=== PATIENT | male | born 1940 | race African-American/Black ===

== ENCOUNTER 2017-12-10 03:09 | Emergency (ER) | payer MEDICARE ==
[2017-12-10 03:39] VITALS: BMI 25.6
[2017-12-10] MEDS ORDERED: KETOROLAC TROMETHAMINE 60 MG/2 ML VIAL IM ONE (03:58)
--- NOTE | 2017-12-10 04:00 | PDOC ---
History of Present Illness - General Chief Complaint: Pain Stated Complaint: L LEG PAIN Time Seen by Provider: 12/10/17 03:33 History Source: Patient Exam Limitations: No Limitations - History of Present Illness Initial Comments: CHIEF COMPLAINT: 68 y/o afebrile male with PMH HTN, HLD, DM, arthritis c/o left hip pain. HISTORY OF PRESENT ILLNESS: The patient states the left hip has been hurting more than usual for the past 24 hours. He has not taken anything for pain. He does have bad arthritis in his left hip. He denies fall or trauma to left hip. He denies swelling, numbness/tingling to affected extremity. Vital signs on arrival are within normal limits. REVIEW OF SYSTEMS: GENERAL/CONSTITUTIONAL: No fever/chills. No weakness. No weight change. GENITOURINARY: No dysuria, frequency, or change in urination. MUSCULOSKELETAL: +left hip pain. No neck or back pain. SKIN: No rash or easy bruising. NEUROLOGIC: No headache, vertigo, loss of consciousness, or loss of sensation. PHYSICAL EXAM: VITAL_SIGNS: within normal limits GENERAL_APPEARANCE: alert, cooperative, no obvious discomfort. MENTAL_STATUS: speech clear, oriented X 3, responds appropriately to questions. NEURO: motor intact and sensory intact in injured extremity. EXTREMITIES: TTP of left greater trochanter. No leg length discrepancy. No erythema or edema to affected area. SKIN: warm, dry, good color. Past History - Past Medical History Allergies/Adverse Reactions: Allergies Allergy/AdvReac Type Severity Reaction Status Date / Time No Known Drug Allergies Allergy Verified 12/10/17 04:14 codeine AdvReac Intermediate Verified 12/10/17 04:00 Home Medications: Ambulatory Orders Atorvastatin Ca [Lipitor] 20 mg PO HS 12/10/17 Meloxicam 7.5 mg PO DAILY 12/10/17 Pantoprazole Sodium 40 mg PO DAILY 12/10/17 Sitagliptin Phos/Metformin HCl [Janumet 50-1,000 mg Tablet] 1 each PO DAILY Tamsulosin HCl 0.4 mg PO DAILY 12/10/17 COPD: No Diabetes: Yes HTN: Yes Hypercholesterolemia: Yes Other medical history: BPH, GERD, arthritis - Suicide/Smoking/Psychosocial Hx Smoking History: Never smoked Hx Alcohol Use: No Drug/Substance Use Hx: No *Physical Exam - Vital Signs Last Vital Signs Temp Pulse Resp BP Pulse Ox 98.5 F 86 19 138/86 12/10/17 03:25 12/10/17 03:25 12/10/17 03:25 12/10/17 03:25 ED Treatment Course - RADIOLOGY Radiology Studies Ordered: Category Date Time Status HIP & PELVIS-LEFT [RAD] Stat Radiology 12/10/17 03:58 Ordered Medical Decision Making - Medical Decision Making A/P: 77 y/o male with atraumatic left hip pain. Plan is as follows: 1. xray 2. 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 Patient states he feels a little better. Will discharge to home with instructions to take ibuprofen for pain and a referral for ortho. Pt instructed to return to the ER with any worsening or concerning symptoms. The patient verbalizes understanding of all instructions, has no further questions and is awaiting discharge. *DC/Admit/Observation/Transfer Diagnosis at time of Disposition: Arthritis of hip - Discharge Dispostion Disposition: HOME Condition at time of disposition: Stable - Referrals Referrals: Teja Martin MD [Primary Care Provider] - Khang Dupree MD [Staff Physician] - 1 week - Patient Instructions Printed Discharge Instructions: DI for Osteoarthritis Additional Instructions: Discharge Instructions: -Your xrays show very bad arthritis in the left hip -Take 600mg of over the counter Ibuprofen every 6 hours for pain with food (DO NOT TAKE WHILE TAKING MELOXICAM) -Apply ice to affected area to help with pain -Follow up with Dr. Dupree within 1 week for further evaluation -return to the ER with any worsening or concerning symptoms - Post Discharge Activity
--- NOTE | 2017-12-10 04:15 | PDOC ---
*Physical Exam - Vital Signs Last Vital Signs Temp Pulse Resp BP Pulse Ox 98.5 F 86 19 138/86 12/10/17 03:25 12/10/17 03:25 12/10/17 03:25 12/10/17 03:25 ED Treatment Course - Medications Given in the ED: ED Medications Discontinued Medications Generic Name Dose Route Start Last Admin Trade Name Maryan PRN Reason Stop Dose Admin Ketorolac Tromethamine 60 mg 12/10/17 03:58 12/10/17 04:07 Toradol Injection - IM 12/10/17 03:59 60 mg ONCE ONE Administration Medical Decision Making - Medical Decision Making 12/10/17 04:15 agree with care from DAPHNIE Lay *DC/Admit/Observation/Transfer Diagnosis at time of Disposition: Arthritis of hip - Discharge Dispostion Disposition: HOME Condition at time of disposition: Stable - Referrals Referrals: Khang Dupree MD [Staff Physician] - 1 week Teja Martin MD [Primary Care Provider] - - Patient Instructions Printed Discharge Instructions: DI for Osteoarthritis Additional Instructions: Discharge Instructions: -Your xrays show very bad arthritis in the left hip -Take 600mg of over the counter Ibuprofen every 6 hours for pain with food (DO NOT TAKE WHILE TAKING MELOXICAM) -Apply ice to affected area to help with pain -Follow up with Dr. Dupree within 1 week for further evaluation -return to the ER with any worsening or concerning symptoms - Post Discharge Activity
[2017-12-10 05:16] VITALS: BP 128/86; PULSE 89; TEMP 99
== END 2017-12-10 05:17 | disposition home or self-care (01) ==
LOC: JER 03:09
PROC: 3E0233Z Introduction of Anti-inflammatory into Muscle, Percutaneous Approach (ICD-10-PCS; principal; 2017-12-10)
DX: M13.852 Other specified arthritis, left hip (principal); I10 Essential (primary) hypertension; E11.9 Type 2 diabetes mellitus without complications; Z79.84 Long term (current) use of oral hypoglycemic drugs; E78.00 Pure hypercholesterolemia, unspecified; K21.9 Gastro-esophageal reflux disease without esophagitis; N40.0 Benign prostatic hyperplasia without lower urinary tract symptoms
CPT/HCPCS: 73523-TC-FY; 96372; 99282-25